=== PATIENT | female | born 1985 | race Hispanic/Latino ===

== ENCOUNTER 2017-01-08 19:01 | Emergency (ER) | payer OTHER ==
[~2017-01-08] VITALS: Ht 165.1 cm; Wt 76.4 kg
[2017-01-08 19:10] VITALS: BP 112/77; PULSE 76; RESP 20; O2SAT 99
--- NOTE | 2017-01-08 20:25 | ED.REPORT ---
HPI-General Illness Date of Service January 08, 2017 ED Provider: Asad Doyle MD Patient is a 31 year old female with a history of coccyx fracture (2011) who presents to the ED with back pain that began earlier this evening. Patient was reportedly at work and strained her back. She consistently lifts heavy objects at work. Patient denies any other pain at this time. She denies any bowel/ bladder incontinence, numbness/tingling or weakness in the lower extremities. Nursing Notes Stated Complaint: BACK PAIN Chief Complaint: Back Pain or Injury Nursing Notes Reviewed: Yes Allergies: Coded Allergies: No Known Allergies (Unverified , 01/08/17) Scheduled PRN Cyclobenzaprine (Cyclobenzaprine) 5 Mg Tablet 5 MG PO HS PRN PRN Spasm Ibuprofen (Ibuprofen) 600 Mg Tablet 600 MG PO TID PRN PRN For Pain General Time Seen by MD: 19:21 Chief Complaint Back pain Hx Obtained From: Patient Arrived By: Walk-in Sudden in Onset?: No Onset Occurred: 3 days ago Symptom Duration: Since onset Caused by: Accidental Context: Occurred at: Workplace Location: : Back Quality: Painful Radiation: : Does not radiate Severity: Current: Moderate Severity: Maximum: Moderate Associated with: Denies: Numb extremities, Weak extremity, Weakness Pertinent Negative: Pt denies other symptoms Recent Healthcare: No recent doctor visit, No recent hospitalization Past Medical History Past Medical History Fractured coccyx (2011) Past Surgical History None reported Smoking History Unknown if Ever Smoker Social History Other Social History: Good social support, Local resident Occupation Lifts heavy objects Ambulatory Status Independent Review of Systems Full Review of Systems GI: Denies: Nausea, Vomiting Female: Denies: Incontinence Musculoskeletal: Reports: Back pain, Denies: Extremity pain, Extremity swelling Neurologic: Denies: Numbness Complete sys rev & neg: except as marked. Physical Exam Vital Signs Vital Signs Date Time Temp Pulse Resp B/P Pulse Ox O2 Delivery O2 Flow Rate FiO2 01/08/17 19:10 37.2 76 20 112/77 99 Room Air Initial VS: Reviewed Head / Eyes: Atraumatic, Normocephalic, PERRL Neck: Supple, Non-tender, Full range of motion Extremities: Vascular intact, Neuro intact, No swelling, No tenderness Skin: Warm, Dry, No cyanosis Psychiatric: Mood/affect normal, Behavior normal, Normal thought content General/Constitutional: Awake, Alert, No acute distress Head / Eyes: Atraumatic, Normocephalic, PERRL Neck: Atraumatic, Supple Respiratory / Chest: Atraumatic, No respiratory distress Cardiovascular: Heart rate NL, Regular rhythm, Heart sounds NL Abdomen: Atraumatic, Soft, Non-tender Back: Atraumatic, No midline vertebral tend Flank / Spine / Paraspinal: Positive: Lumbar paraspinal tend... (Low) No saddle Neurologic: Oriented X3, Speech NL, No motor deficits, No sensory deficits, CN II - XII intact, Reflexes equal bilat, Cerebellar NL, Memory NL Interpretation & Diagnostics Lab Results Interpretation Test 01/08/17 20:31 Hold Urine Received (Received) Point of Care Testing: Urinalysis NL Re-Eval/Medical Decision Med Decision/Clinical Course In summary, the patient is a generally healthy 31-year-old female who presents with back pain. Our primary and secondary assessment reveals an awake, alert patient in no acute distress. Hemodynamically stable and afebrile. Exam reveals normal neurologic exam of the lower extremities. Given this immunocompetent, afebrile, patient's history and exam, suspect muscle strain or spasm. No concerning signs or symptoms suggestive of cauda equina, cord compression, epidural abscess or other neurologic emergency. History not suggestive of referred intraabdominal pathology or vascular emergency. There is no history of significant trauma, fever, incontinence, unexplained weight loss, cancer history, long-term steroid use or IV drug use. And given the patient's young age, I do not feel imaging is warranted at this time. test is negative and she has no symptoms of urinary tract infection. Given the patient's workup, feel they are safe for discharge with conservative management. The patient was intramuscular Toradol for symptom control while here in the ER and had excellent improvement in her symptoms. She will be discharged with prescription for ibuprofen and Flexeril to use as needed. Have discussed with the patient results of workup, indications for return including: motor weakness in the lower extremities and/or bowel or bladder incontinence. Also emphasized the need for PCP follow up. They understand and agree with the plan. Time of Eval: 20:47 Patient Status: Condition improved Re-Evaluation/Progress Note: Patient is rechecked. She is informed of her results and diagnosis. All questions are addressed. She understands and agrees with the intended treatment plan. Counseled Regarding: Diagnosis, Need for follow-up, When/why to return to ED, Need for transfer Discharge & Departure Primary Impression: Low back pain Chronicity: unspecified Back pain laterality: bilateral Sciatica presence: without sciatica Qualified Code: M54.5 - Low back pain Additional Impression: Low back sprain Encounter type: initial encounter Qualified Code: S33.9XXA - Sprain of unspecified parts of lumbar spine and pelvis, initial encounter Disposition: Home Discharge Condition All VS Reviewed: Yes Condition: Improved Patient Instructions: Low Back Strain (ED) Additional Instructions: Thank you for seeking care at the emergency room. It is difficult for us to make definitive diagnoses in the ED but we believe that you are experiencing a back strain. Our primary goal today in the ED was to evaluate you for any life-threatening conditions. Your evaluation was reassuring. You will be discharged with a prescription for 600 mg of ibuprofen and flexural. Take 1-2 every 6 hours as needed for pain, stop taking if this creates an y abdominal upset. You should follow-up with your primary doctor in the next week. You should return to the ED immediately if you develop any bowel incontinence, worsening pain, numbness/tingling or weakness in the lower extremities or any other concerning signs or symptoms. Thank you for letting us partake in your care today. Referrals: NOPCP (PCP) Scribe Attestation Portions of this note were transcribed by Robert Mares. I, Dr. Doyle personally performed the history, physical exam and medical decision-making; I reviewed and confirmed the accuracy of the information in the transcribed note. Signed by: Cyndy Ricci, 01/08/172057. Asad Doyle MD January 08, 2017 20:25 ROBERT MARES January 08, 2017 20:47
[2017-01-08] MEDS ORDERED: IBUP-1827 PO (20:48)
[2017-01-08] MEDS ORDERED: CYCL5TAB PO (20:48)
[2017-01-08 20:58] VITALS: BP 121/81; PULSE 75; RESP 14; O2SAT 99
== END 2017-01-08 21:00 | disposition home or self-care (01) ==
LOC: SED 19:01
DX: S33.9XXA Sprain of unspecified parts of lumbar spine and pelvis, initial encounter (principal); X50.0XXA Overexertion from strenuous movement or load, initial encounter; Y93.89 Activity, other specified; Y99.0 Civilian activity done for income or pay; Y92.59 Other trade areas as the place of occurrence of the external cause; Z87.81 Personal history of (healed) traumatic fracture
CPT/HCPCS: 81025; 96372; 99284; J1885

== ENCOUNTER 2017-01-12 16:35 | Emergency (ER) | payer OTHER ==
[~2017-01-12] VITALS: Ht 165.1 cm; Wt 76.4 kg
[~2017-01-12 16:35] MED LIST: CYCL5TAB PO; IBUP-1827 PO
[2017-01-12 16:39] VITALS: BP 111/78; PULSE 76; RESP 16; O2SAT 98
--- NOTE | 2017-01-12 17:20 | ED.REPORT ---
HPI-Back Pain Under 40 Date of Service January 12, 2017 ED Provider: Deanna Jean-Baptiste MD Nursing Notes Stated Complaint: BACK PAIN Chief Complaint: Back Pain or Injury Nursing Notes Reviewed: Yes Allergies: Coded Allergies: No Known Allergies (Unverified , 01/08/17) Scheduled PRN Cyclobenzaprine (Cyclobenzaprine) 5 Mg Tablet 5 MG PO HS PRN PRN Spasm Ibuprofen (Ibuprofen) 600 Mg Tablet 600 MG PO TID PRN PRN For Pain General Time Seen by MD: 17:16 Chief Complaint Back pain Past Medical History Past Medical History Fractured coccyx (2011) Past Surgical History None reported Smoking History Unknown if Ever Smoker Social History Other Social History: Good social support, Local resident Occupation Lifts heavy objects Ambulatory Status Independent Physical Exam Initial Vital Signs Vital Signs (First) Date Time Temp Pulse Resp B/P Pulse Ox O2 Delivery O2 Flow Rate FiO2 01/12/17 16:39 36.9 76 16 111/78 98 Room Air Discharge & Departure All VS Reviewed: Yes Condition: Stable Referrals: NOPCP (PCP) Scribe Attestation Portions of this note were transcribed by Cuca Fierro. I, Dr. Jean-Baptiste personally performed the history, physical exam and medical decision-making; I reviewed and confirmed the accuracy of the information in the transcribed note. Signed by: Cyndy Sampson, 01/12/2017 at [Time]. Deanna Jean-Baptiste MD January 12, 2017 17:20 Cuca Fierro January 12, 2017 17:22
--- NOTE | 2017-01-12 17:34 | ED.REPORT ---
HPI-Back Pain Under 42 Date of Service January 12, 2017 ED Provider: Deanna Jean-Baptiste MD Makenzie is an otherwise healthy 31-year-old female with chief complaint of low back pain. She was seen previously in the department and diagnosed with the skeletal low back pain caused by straining at work. She returns today because she feels she cannot perform her work duties at her job at [employer]. She is requesting a work note. She reports no changes in her back pain. Denies numbness, tingling, weakness or pain in lower extremity. Denies fever, DM, HIV, organ transplant, immunosuppression, recent surgery, recent infection, history of back surgery, surgical implants and IV drug use. Denies bowel/bladder dysfunction and saddle anesthesia. Nursing Notes Stated Complaint: BACK PAIN Chief Complaint: Back Pain or Injury Nursing Notes Reviewed: Yes Allergies: Coded Allergies: No Known Allergies (Unverified , 01/08/17) Scheduled PRN Cyclobenzaprine (Cyclobenzaprine) 5 Mg Tablet 5 MG PO HS PRN PRN Spasm Ibuprofen (Ibuprofen) 600 Mg Tablet 600 MG PO TID PRN PRN For Pain General Time Seen by MD: 17:16 Chief Complaint Back pain Sudden in Onset?: No Past Medical History Past Medical History Fractured coccyx (2012) Past Surgical History None reported Smoking History Unknown if Ever Smoker Social History Other Social History: Good social support, Local resident Occupation Lifts heavy objects Ambulatory Status Independent Review of Systems Review of Systems Note: Negative unless stated otherwise in history of present illness Physical Exam General: Well appearing, well developed, well nourished, no acute distress. Back: Normal to inspection without tenderness. Head: Atraumatic, normocephalic. Eyes: No scleral icterus or injection. No discharge. Vision grossly intact. ENT: Voice clear, hearing grossly intact. Respiratory: No respiratory distress, no increased work of breathing. Speaks in complete sentences. Skin: Warm and dry. Neurological: Hip flexion, knee extension, ankle dorsiflexion and plantarflexion strength 5/5 B/L. Patellar and Achilles reflexes present and equal B/L. Sensation to sharp touch intact at medial leg, dorsal foot and lateral foot B/L. negative seated straight leg raise, negative seated cross straight leg raise. Psychological: alert and oriented. Speech appropriate, linear and logical. Behavior appropriate. Initial Vital Signs Vital Signs (First) Date Time Temp Pulse Resp B/P Pulse Ox O2 Delivery O2 Flow Rate FiO2 01/12/17 16:39 36.9 76 16 111/78 98 Room Air Initial VS: Vital signs normal Re-Eval/Medical Decision Med Decision/Clinical Course 31-year-old female presents with a chief complaint of low back pain. Seen in this department previously and diagnosed muscles, back pain related to her work involving heavy lifting at [employer]. She reports no change in her symptoms, however she feels she is unable to perform her job and wishes a work note. Denies loss of bowel/bladder function, saddle anesthesia. Physical examination is benign with normal neurological examination, nontender back. The patient is afebrile. Back pain is without red flag symptoms or history for acute disc herniation, cauda equina, infection, hematoma, trauma, pyelonephritis, nephrolithiasis, AAA , cancer. I concur that this is musculoskeletal back pain. Advised rest, over- the-counter analgesia. Provided work note and referral to L&I follow-up. Advised regarding emergency return precautions. Patient verbalizes understanding of and consent to the plan Discharge & Departure Impression: Primary Impression: Low back pain Chronicity: unspecified Back pain laterality: bilateral Sciatica presence: without sciatica Qualified Code: M54.5 - Low back pain Disposition: Home Condition: Stable Patient Instructions: Acute Low Back Pain (ED) Additional Instructions: Evaluation in the emergency department for lower back pain. History and physical are reassuring for emergent neurological condition such as epidural abscess or cauda equina syndrome. History does not suggest that this is likely to be a spinal fracture. Your neurological examination is normal, indicating there is no damage to the nerves in your back. I see no indication to perform imaging tests at this time. Treatment is largely symptomatic. Rest is important, especially for the next couple of days, but avoid total bed rest. Reasonable activity as tolerated is the best. Continue to treat the pain as you were instructed to by Dr. Doyle. I will write a note to be off work for the next week to allow your back to heal. I will also give a referral to a L&I primary care provider. Please contact them tomorrow to arrange follow-up in the next week or so. Most of all be patient: 70-90% of people with injuries presenting like yours will resolve within 7 weeks, even without treatment. Follow-up with your primary care provider in the next week or two to be sure your recovery is progressing as expected. Return the emergency department for new or worsening symptoms such as loss of bowel/bladder control, numbness between your legs, new weakness/numbness or high fever. Referrals: Eduin Nieto MD EDSupervising Provider for APC: Deanna Jean-Baptiste MD copies to: Eduin Nieto MD, Seth PA-C January 12, 2017 17:34
[2017-01-12 18:16] VITALS: BP 111/78; PULSE 76; RESP 16; O2SAT 98
== END 2017-01-12 18:17 | disposition home or self-care (01) ==
LOC: SED 16:35
DX: M54.5 Low back pain (principal); X50.0XXA Overexertion from strenuous movement or load, initial encounter; Y92.59 Other trade areas as the place of occurrence of the external cause; Y93.89 Activity, other specified; Y99.0 Civilian activity done for income or pay; Z02.79 Encounter for issue of other medical certificate